=== PATIENT | male | born 1950 | race Caucasian/White ===

== ENCOUNTER 2024-10-27 10:39 | Outpatient (AMB) | payer OTHER, SELFPAY ==
--- NOTE | 2024-10-27 10:42 | A.OFFVIS_ITS ---
Vital Signs 10/27/24 10:46 Height 5 ft 8 in Weight 199 lb BMI 30.3 BP 114/78 Blood Pressure Location Rt brachial Position Sitting Intake Visit Reasons: ENP Parkinson Intake Note: Patient presents for Parkinson's Allergies No Known Allergies Allergy (Verified 10/27/24 10:47) Medication List - Last Reconciled 10/27/24 by Ashlee Ervin MD aspirin 81 mg PO DAILY atorvastatin 40 mg PO DAILY carbidopa-levodopa 25-100 mg 1 tab PO TID carvedilol 6.25 mg PO BID hydrochlorothiazide 25 mg PO DAILY lisinopril 30 mg PO DAILY sertraline 25 mg PO DAILY HPI Comments Details: 74y/o male comes for further evaluation and management of Parkinsons. He started developing rest tremors in his left hand about 2 years ago . Now he has tremors on his Right hands and legs as well. the tremors are mostly at rest. He was seen by Dr. Gonzalez and was started on carbidopa/levodopa 25/100 tid and noticed improvement. 3 weeks ago he developed RSV and was very sick . He noticed increase in tremors and generalized weakness. He was in [place] for 2 years - exposed to Agent [place] Memory- worse , word finding difficulty Sleep-vivid dreams sometimes , violent dreams sometimes, snoring , has sleep apnea and is on CPAP. Mood-anxiety - sertraline helps. alprazolam PRN helps He is very active and does a lot of wood working- very motivated Speech- no change hoarse from RSV , mild drooling Handwriting- always bad using utensils- good Dressing- normal showers- normal He has trouble turning in bed because of artificial shoulders He feels his gait is lower , mild off balance He had a fall month ago- while he got out of basement through trap door He has chronic double vision . Since his RSV he has dizziness and vertigo. He has stress incontinence Bowle movements - OK since his diet was changed [facility] Medical History Parkinson's disease without dyskinesia Sleep apnea PTSD (post-traumatic stress disorder) Panic disorder Hyperlipidemia HTN (hypertension) Cervicalgia Carpal tunnel syndrome Carcinoma larynx Carcinoma of prostate Surgical History H/O shoulder surgery H/O knee surgery Hx of cholecystectomy Social History Alcohol intake: never Patient Tobacco Use Status: Never used Tobacco Physical Exam Vital Signs: Last Vital Signs BP 114/78 10/27/24 10:46 BMI result Body Mass Index 30.3 Const General: cooperative, healthy appearing, comfortable and no acute distress Nutritional Appearance: average body habitus Orientation/consciousness: patient oriented x3 Eyes Pupils: Equal, round and reactive pupils present Neuro Other: Normal facial expression and blink No tremors mild cog wheel rigidity on the left UE FFM and foot taps mildly decreased- Gait- mild stoop, mild decreased arm swing good stride General: patient oriented x3, moves all extremities and no focal motor deficits Cranial nerves: Yes Facial sensation intact/muscles of mastication intact, Yes Equal, round and reactive pupils present, Yes Bilaterally intact EOM present, Yes Nystagmus not present, Yes Normal facial strength present, Yes Midline tongue present, Yes Symmetric palate elevation present and Yes Ability to bilaterally elevate shoulders present Cognition (Neuro): normal cognition Motor exam (neuro): 5/5 motor strength present throughout Deep tendon reflexes (DTR's): Right triceps reflex intensity grade: 1+, Left triceps reflex intensity grade: 1+, Rt Biceps (C5, C6): 1+, Left biceps reflex intensity grade: 1+, Right brachioradialis reflex intensity grade: 1+, Left brachioradialis reflex intensity grade: 1+, Right patellar reflex intensity grade: 1+ and Left patellar reflex intensity grade: 1+ Coordination: [id number] test normal Assessment & Plan Assessment & Plan (1) Parkinson's disease without dyskinesia: Code(s): G20.A1 - Parkinson's disease without dyskinesia, without mention of fluctuations Category: Medical Qualifiers: Fluctuating manifestations: without fluctuating manifestations Qualified Code(s): G20.A1 - Parkinson's disease without dyskinesia, without mention of fluctuations Plan [facility] Continue carbidopa/levodopa 25/100 tid Continue exercise Discussed fall prevention F/u in 6 mths Coding Level of Care Code New Pt Level 4 (61161) Complex EM visit Add On G2211 Diagnoses Parkinson's disease without dyskinesia or fluctuating manifestations G20.A1 Fluctuating manifestations: without fluctuating manifestations
[2024-10-27 10:46] VITALS: BP 114/78; BMI 30.3
--- OUTSIDE RECORDS SUMMARY | 2024-10-27 11:48 | XMS_ITS | Data Portability ---
Author Organization [place] [facility] - OP Address [address] [place] [address] Care Team Providers Care Lead Fabricator Name Role Phone LO PANG Primary Care Provider [facility] OTHER [phone] Assessment No assessment recorded. Plan of Treatment Reminders Order Date Submit Date Provider Last Modified By Organization Details Last Modified Time Details Appointments None recorded. Lab BMP, blood - in one month 2014 015 [email or web address] Not available 5 10:19:38 Referral None recorded. Procedures None recorded. Surgeries None recorded. Imaging None recorded. Medication Orders Nitrostat 0.4 mg sublingual tablet 2014 015 [facility]FACE [id number], [address] [place], [address], 5 17:24:43 ramipril 1.25 mg capsule 2014 015 [id number], [address] [place], [address], 5 08:52:52 Nitrostat 0.4 mg sublingual tablet 2014 015 [facility]FACE [id number], [address] [place], [address], 5 08:52:50 Patient TargetsNo targets recorded. Patient InstructionsNo instructions recorded. Reason for Referral None Reported. Results Created Date Observation Date Name Description Value Unit Range Abnormal Flag Note LastModifiedBy Organization Detail LastModifiedTime Result Notes None recorded. 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 He was taken to the [facility] where his coronary anatomy showed severe triple vessel coronary artery disease with an occlusion of the RCA. He had minimal pericardial effusion. He was taken to the [facility] for complete reconstruction of his LAD, which was performed with 3 drug-eluting stents 2.25 x 28, 2.25 x 20, and 3.0 x 16 mm Promus Premiere. He had a wide fracture on the diagonal branch of the LAD with no compromise of the flow. He had 80% disease of the marginal branch of the left circumflex with an EF of 45% to 50% and small pericardial effusion. The patient was discharged home on Prasugrel and aspirin. His postoperative course was uneventful. The wire was left in place and was not retrievable with the snare. Repeat echocardiography demonstrated ejection fraction of 55%. Problem Notes None recorded. Medical Equipment None Reported. Allergies No known drug allergies Medications Name Sig Start Date Stop Date Status Note LastModified by Organization Details LastModified Time atorvasta tin 80 mg tablet TAKE 1 TABLET EVERY DAY 2014 active due for yearly blood work : called to pharmacy DS Not Available Not Available Not Available radha brand 6.25 mg tablet TAKE 1 TABLET TWICE A DAY DIRECTED 2014 active Not Available Not Available Not Avai lable moxifloxa tato 400 mg tablet 08/30 completed Not Available Not Available Not Available Nitrostat 0.4 mg sublingua l tablet Place 1 tablet as needed by sublingu al route as directed . 2014 active Not Available Not Available Not Avai lable hydrocodo ne-homatr opine 5 mg-1.5 mg tablet 08/30 completed Not Available Not Available Not Available amlodipin e 10 mg tablet Take by oral route for 90 days. 08/30 completed Not Available Not Available Not Available ramipril 1.25 mg capsule Take 1 capsule every day by oral route as directed . 2014 active Not Available Not Available Not Avai lable sertralin e 50mg daily active Not Available Not Available No t Available Vitamin C 500mg daily active Not Available Not Available No t Available Aspir-81 once daily active Not Available Not Available No t Available Effient 10 mg tablet Take 1 tablet every day by oral route for 30 days. active Not Available Not Available No t Available Vitals Date Recorded Body height Body mass index (BMI) Body weight Heart rate Systolic blood pressure Diastolic blood pressure Provider Name and Address Organization Details Last Updated DateTime 5 171.45 cm 31.1 kg/m2 85199.9 99191 g 60 /min 133 mm[Hg] 89 mm[Hg] Jennifer Ayala [place] - [facility] 5 16:22:55 Date Recorded Body weight Body height Body mass index (BMI) Heart rate Systolic blood pressure Diastolic blood pressure Provider Name and Address Organization Details Last Updated DateTime 5 07507.1 79282 g 172.72 cm 32.2 kg/m2 64 /min 156 mm[Hg] 97 mm[Hg] Leatha Stephen [place] [facility] 5 16:36:55 Date Recorded Body weight Heart rate Body mass index (BMI) Body height Systolic blood pressure Diastolic blood pressure Provider Name and Address Organization Details Last Updated DateTime 4 57609.7 81572 g 58 /min 31.1 kg/m2 170.18 cm 118 mm[Hg] 78 mm[Hg] Yazan Pineda [place] [facility] 4 16:47:53 Social History Question Answer Notes LastModified by Organizat ion Details LastModified Time Tobacco Smoking Status Former Smoker [place]idi[place] [facility] 09/07/2014 16:47:52 How Many Years Have You Smoked Tobacco? 25 [email or web address] Information not available 09/06/2015 Sex: Unknown Functional Status None recorded. Mental Status None recorded. Family History Nothing Reported Notes:No premature heart dis ease in family. Medical History No medical history recorded. Immunizations Vaccine Type Date Status Note Provider Nam e and Address Organization Details Recorded Time pneumococcal, unspecified formulation 08/30/2014 completed Jennifer Ayala null, [place] [facility]2015 16:22:55 influenza, unspecified formulation 06/30/2015 completed Leatha Stephen dejuan, [place] [facility]2015 16:25:13 Past Encounters Encounter ID Performer Location Encounter Start Date Encounter Closed Date Diagnosis/Indication Diagnosis SNOMED-CT Code Diagnosis ICD10 Code Diagnosis Note [id number] Rolando Garcia MD [facility] [address] [address] 09/07/2014 16:32:15 09/07/2014 17:08:22 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 He had some GI bleed. I advised the patient to check with his gastroente rologist. Bleeding has stopped. At this point will continue with the aspirin and Effient. He should remain on antiplatel et therapy for a minimum of 1 year. Benign hypertension 22579099 He has dizziness and possibly low blood pressure will discontinu e his MICHAEL inhibitor. 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 I advised the patient to continue aspirin and discontinu e his Effient in April 2015 Benign hypertension 11817684 Blood pressure is well-contr olled, dizziness, improved. Hyperlipidemia 90006084 Target LDL less than [address] percutaneous transluminal coronary angioplasty 611407634 Aspirin lifelong. Effient for a minimum of 1 year post PCI. 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 I advised the patient to continue aspirin. Benign hypertension 1072 5009 I10 Blood pressure is running a bit on the high side. We will resume the patient's ramipril. Monitor his electrolyt es. Hyperlipidemia 94346869 E78.5 Target LDL less than [address] percutaneous transluminal coronary angioplasty 706272223 Z98.61 Aspirin lifelong. Health Concerns Section Related Observation LastModified by Organization Detai ls LastModified Time None Recorded Concern Status LastModified by Organization Details LastModified Time None Recorded Advance Directives Directive None Recorded Payers Encounter Date Sequence Insurance Name Policy Number Policy Adnerson Covered Member ID Anderson Member ID Guarantor Name 09/06/2015 1 [facility] (POS) [id number] Pankaj Her [id number] Pankaj Her Notes Date Note Type Note Provider Name and Address Organization Details Recorded Time 09/07/2014 text/html the patient from a cardiovascular point of view is quite active denies any chest pain shortness of breath PND orthopnea or syncope. He completed his cardiac rehabilitation program. He exercises on a regular basis on a treadmill at home up to 45 minutes. In 2 occasions the patient had a bleeding per rectum but this spontaneously stopped. He had no further bleeding issues. He continued his aspirin and Effient. Occasionally the patient reported he get dizzy and lightheaded when he stands up. And this is happening more so in the morning. The patient lipid has been monitored he is on large dose statin therapy with no side effect. His echocardiography demonstrated an ejection fraction of 50-55% with inferior wall hypokinesis with severe left atrial enlargementand valvular abnormalities. Rolando Garcia MD [address] [place] [address], [address], [place] [facility] 09/07/2014 20:01:46 03/07/2015 text/html the patient from a cardiovascular point of view is quite active denies any chest pain shortness of breath PND orthopnea or syncope. He exercises on a regular basis on a treadmill for three miles at home up to 45 minutes. He continued his aspirin and Effient. He has no further bleeding. He bruises easily. He no longer complains of any dizziness or lightheadedness. The patient lipid has been monitored he is on large dose statin therapy with no side effect. Rolando Garcia MD [address] [place], [address], [place] [facility]/07[facility]2015 17:24:39 09/06/2015 text/html The patient from a cardiovascular point of view is doing well physically active symptoms of angina or heart failure. He is on aspirin and beta rossy. He stopped his MICHAEL inhibitor. His blood pressure is now running high site. The patient is on atorvastatin for cholesterol well tolerated. Recent studies reviewed his CBC is unremarkable. Creatinine is 0.9 with BUN of 24. His potassium is 4.6. Liver function tests were normal. His HDL is 36 LDL of 63 triglycerides 105. Thyroid function test is normal. Rolando Garcia MD [address] [place], [address], [place] [facility] 09/07/2015 08:53:11
--- OUTSIDE RECORDS SUMMARY | 2024-10-27 11:48 | XMS_ITS | Clinical Summary ---
Author Organization Formerly [facility] Address [address] [place] [address] Care Team Providers Care Newspaper Copy Editor Name Role Phone Unavailable Primary Care Provider Unavailabl e Social History Tobacco Use Types Packs/Day Years Used Date Smoking Tobacco: Never Assessed Sex and Gender Information Value Date Recorded Sex Assigned at Not on file Gender Identity Not on file Sexual Orientation Not on file Plan of Treatment Health Maintenance Due Date Last Done Comments Hepatitis C Virus Screening 1950 DTaP/Tdap/Td Vaccines (1 - Tdap) 1968 Pneumococcal Vaccines 50+ (1 of 1 - PCV) 1999 Zoster (Shingles) Vaccine (1 of 2) 1999 COVID-19 Vaccine ( - 2023-2 5 season) 2024 RSV Vaccine 60 years and old er and Patients (1 - 1-dose 75+ series) 2024 Hepatitis B Vaccines Aged Out No long er eligible based on patient's age to complete this topic
== END 2024-10-27 11:19 | disposition home or self-care (01) ==
PROVIDERS: Visit Provider Psychiatry & Neurology Neurology
DX: G20.A1 Parkinson's disease without dyskinesia, without mention of fluctuations (principal)
CPT/HCPCS: 99204; G2211

== ENCOUNTER → 2024-10-27 10:39 | Outpatient (BNVA) | payer OTHER, SELFPAY | PROVIDERS: Visit Provider Psychiatry & Neurology Neurology | DX: G20.A1 Parkinson's disease without dyskinesia, without mention of fluctuations (principal) | CPT/HCPCS: 99202 ==

== ENCOUNTER 2025-06-07 09:51 | Outpatient (AMB) | payer OTHER, SELFPAY ==
--- NOTE | 2025-06-07 09:52 | MHC.OFFVIS ---
Vital Signs 06/07/25 09:53 Height 5 ft 8 in Weight 211 lb 4 oz BMI 32.1 BP 98/60 Pulse 72 Pulse Source Pulse Oximeter Pulse Oximetry (%) 94 Oxygen Delivery Method Room Air Intake Visit Reasons: f/u appt Intake Note: Follow up Parkinson's disease without dyskinesia Law Office Assistant Required: No Accompanied by: Spouse Allergies No Known Allergies Allergy (Verified 06/07/25 09:57) HPI Comments Details: 74y/o male comes for follow up of Parkinsons. No new symptoms. He is independent in all ADLs. History of initial visit 09/2024-He started developing rest tremors in his left hand about 2 years ago . Now he has tremors on his Right hands and legs as well. the tremors are mostly at rest. He was seen by Dr. Gonzalez and was started on carbidopa/levodopa 25/100 tid and noticed improvement. 3 weeks ago he developed RSV and was very sick . He noticed increase in tremors and generalized weakness. He was in [place] for 2 years - exposed to Agent [place] Memory- worse , word finding difficulty Sleep-vivid dreams sometimes , violent dreams sometimes, snoring , has sleep apnea and is on CPAP. Mood-anxiety - sertraline helps. alprazolam PRN helps He is very active and does a lot of wood working- very motivated Speech- no change hoarse from RSV , mild drooling Handwriting- always bad using utensils- good Dressing- normal showers- normal He has trouble turning in bed because of artificial shoulders He feels his gait is lower , mild off balance He had a fall month ago- while he got out of basement through trap door He has chronic double vision . Since his RSV he has dizziness and vertigo. He has stress incontinence Bowle movements - OK since his diet was changed [facility] Medical History Parkinson's disease without dyskinesia Sleep apnea PTSD (post-traumatic stress disorder) Panic disorder Hyperlipidemia HTN (hypertension) Cervicalgia Carpal tunnel syndrome Carcinoma larynx Carcinoma of prostate Surgical History H/O shoulder surgery H/O knee surgery Hx of cholecystectomy Social History Alcohol intake: never Patient Tobacco Use Status: Never used Tobacco Physical Exam Vital Signs: Last Vital Signs Pulse 72 06/07/25 09:53 BP 98/60 06/07/25 09:53 Pulse Ox 94 06/07/25 09:53 Oxygen Delivery Method Room Air 06/07/25 09:53 BMI result Body Mass Index 32.1 Const General: cooperative, healthy appearing, comfortable and no acute distress Nutritional Appearance: average body habitus Orientation/consciousness: patient oriented x3 Eyes Pupils: Equal, round and reactive pupils present Neuro Other: Normal facial expression and blink No tremors mild cog wheel rigidity on the left UE FFM and foot taps mildly decreased- Gait- mild stoop, mild decreased arm swing good stride General: patient oriented x3, moves all extremities and no focal motor deficits Cranial nerves: Yes Facial sensation intact/muscles of mastication intact, Yes Equal, round and reactive pupils present, Yes Bilaterally intact EOM present, Yes Nystagmus not present, Yes Normal facial strength present, Yes Midline tongue present, Yes Symmetric palate elevation present and Yes Ability to bilaterally elevate shoulders present Cognition (Neuro): normal cognition Motor exam (neuro): 5/5 motor strength present throughout Coordination: [id number] test normal Assessment & Plan Assessment & Plan (1) Parkinson's disease without dyskinesia: Code(s): G20.A1 - Parkinson's disease without dyskinesia, without mention of fluctuations Category: Medical Qualifiers: Fluctuating manifestations: without fluctuating manifestations Qualified Code(s): G20.A1 - Parkinson's disease without dyskinesia, without mention of fluctuations Plan Continue carbidopa/levodopa 25/100 tid Continue exercise Discussed fall prevention F/u in 6 mths Coding Level of Care Code Est Pt Level 4 (20823) Complex EM visit Add On G2211 Diagnoses Parkinson's disease without dyskinesia or fluctuating manifestations G20.A1 Fluctuating manifestations: without fluctuating manifestations
[2025-06-07 09:53] VITALS: BP 98/60; PULSE 72; O2SAT 94; BMI 32.1
--- OUTSIDE RECORDS SUMMARY | 2025-06-07 11:26 | XMS_ITS | Clinical Summary ---
Author Organization [facility] Address [address] [place] [id number] Phone Care Team Providers Care Honing Machine Operator Semiautomatic Name Role Phone Valentino Ortiz NP Primary Care Provide r Allergies No known active allergies Medications atorvastatin (LIPITOR) 80 MG tablet nightly at bedtime. 2 Active acetaminophen (TYLENOL) 500 MG tablet Take 1,000 mg by mouth. TAKE TWO TABLETS BY MOUTH THREE TIMES DAILY NEEDED FOR PAIN 2 Active carvedilol (COREG) 6.25 MG tablet carvedilol 6.25 mg tablet TAKE 1 TABLET TWICE A DAY DIRECTED 2 Active cyclobenzaprin e (FLEXERIL) 5 MG tablet Take 5 mg by mouth. TAKE ONE TABLET BY MOUTH AT BEDTIME NEEDED FOR MUSCLE SPASM 1 Active diclofenac sodium (VOLTAREN) 1 % Gel Apply topically. APPLY 2 GRAMS TOPICALLY FOUR TIMES A DAY FOR OSTEOARTHRITIS - USE DOSING CARD PROVIDED IN BOX 2 Active hydroCHLOROthi azide (HYDRODIURIL) 25 MG tablet Take 12.5 mg by mouth. TAKE ONE-HALF TABLET BY MOUTH ONCE DAILY TO PREVENT FLUID/CONTROL BLOOD PRESSURE 2 Active ibuprofen (ADVIL,MOTRIN) 800 MG tablet Take 800 mg by mouth. TAKE ONE TABLET BY MOUTH THREE TIMES DAILY NEEDED TAKE WITH FOOD; FOR PAIN/INFLAMMATION/ SWELLING 2 Active ketoconazole 2 % cream Apply topically. APPLY A THIN LAYER TOPICALLY TWICE DAILY APPLY TO RASH UNTIL CLEAR, AND NEEDED FOR FLARE UPS 1 Active lisinopril (PRINIVIL,ZEST RIL) 30 MG tablet Take 30 mg by mouth nightly at bedtime. TAKE ONE TABLET BY MOUTH ONCE DAILY TO CONTROL BLOOD PRESSURE 2 Active nitroglycerin (NITROSTAT) 0.4 MG SL tablet Nitrostat 0.[address] 1 tablet as needed by sublingual route as directed. Active ramipriL (ALTACE) 1.25 MG capsule daily. Active sertraline (ZOLOFT) 100 MG tablet Take 100 mg by mouth nightly at bedtime. 2 Active sertraline HCl (ZOLOFT ORAL) sertraline 50mg daily Active traMADoL (ULTRAM) 50 mg tablet Take 50 mg by mouth. TAKE ONE TABLET BY MOUTH THREE TIMES DAILY NEEDED FOR PAIN 2 Active vitamin E 400 UNIT capsule Take 1 capsule by mouth daily. 1 Active aspirin 81 MG EC tablet Aspir-81 once daily Active ascorbic acid, vitamin C, (VITAMIN C) 100 MG tablet Vitamin C 500mg daily Active ALPRAZolam (XANAX) 1 MG tablet Take 1 tablet by mouth daily as needed. 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 Carcinoma of prostate 04/04/2022 Carcinoma of larynx 04/04/2022 Overview (04/04/2022): Nov 28, 2018 Entered By: PAOLA KUMAR Comment: 2005 treated with radiation Contact dermatitis and other eczema 04/04/2022 Diplopia 04/04/2022 Arteriosclerosis of coronary artery 04/04/2022 Overview (04/04/2022): Nov 28, 2018 Entered By: PAOLA KUMAR Comment: 2014- 4 stents History of heart artery stent 04/04/2022 Overview (04/04/2022): X5 2014 no symptoms Sleep apnea 04/04/2022 Social History Tobacco Use Types Packs/Day Years Used Date Smoking Tobacco: Former Cigarettes Q uit: 1989 Smokeless Tobacco: Never Alcohol Use Standard Drinks/Week Comments Not Currently 0 (1 standard drink = 0.6 oz pur e alcohol) Education Answer Date Recorded Are you interested in more education? Not on fausto e 01/25/2023 Are you concerned about learning? Not on file 01/25/2023 No 01/25/2023 No 01/25/2023 Digital Access Answer Date Recorded No 02/23/2023 No 02/23/2023 No 02/23/2023 Reliable internet access at home? Not on file 02/23/2023 Device with a working camera? Not on file Sex and Gender Information Value Date Recorded Sex Assigned at Not on file Legal Sex Male 10:50 AM EDT Gender Identity Not on file Sexual Orientation Not on file Last Filed Vital Signs Vital Sign Reading Time Taken Comments Blood Pressure 114/69 04/04/2022 11:30 AM EDT Pulse 74 04/04/2022 11:30 AM EDT Temperature 36.7 C (98.1 F) 04/04/2022 9:34 AM EDT Respiratory Rate 16 04/04/2022 11:30 AM EDT Oxygen Saturation 97% 04/04/2022 11:30 AM EDT Inhaled Oxygen Concentration - - Weight 95.3 kg (210 lb) 04/04/2022 6:48 AM EDT Height 172.7 cm (5' 8 ) 04/04/2022 6:48 AM EDT Body Mass Index 31.93 04/04/2022 6:48 AM EDT Plan of Treatment Health Maintenance Due Date Last Done Comments CREATININE LEVEL 1950 POTASSIUM LEVEL 1949 DEPRESSION SCREENING 1961 SMOKING Hx and SMOKELESS TOBACCO SCREENING 1962 HEPATITIS C SCREENING 1967 COLOGUARD 1994 COLONOSCOPY 1994 COLORECTAL CANCER SCREENING 1994 FIT TEST 1994 FOBT 1994 SIGMOIDOSCOPY 1994 VIRTUAL COLONOSCOPY 1994 RSV VACCINE (1 - 1-dose 75+ series) 2024 INFLUENZA VACCINE (#1) 2025 , 08/08/2020, 07/31/2020, Additional history exists COVID-19 VACCINE (2024- season) 2025 02/07/2022, 08/15/2021, 11/14/2020, Additional history exists Adult Td,Tdap Booster 03/15/2026 03/15/2016 , 02/29/2016, 02/29/2016, Additional history exists PNEUMOCOCCAL VACCINES (50+ years) Completed 04/07/2019, 05/24/2017, 03/15/2016, Additional history exists ZOSTER VACCINES Completed 02/05/2020, 10/02, 11/28/2018, Additional history exists HEPATITIS A VACCINES Aged Out No long er eligible based on patient's age to complete this topic HIB VACCINES Aged Out No longer eligi ble based on patient's age to complete this topic MENINGOCOCCAL VACCINES (ACWY) Aged Out No longer eligible based on patient's age to complete this topic MENINGOCOCCAL VACCINES (B) Aged Out N o longer eligible based on patient's age to complete this topic Medical Devices Implanted Type Area Clinical Account Specialist Device Identifier Shelf Expiration Date Model / Serial / Lot Coronary Stent Insurance [facility] [place] [address] Care Teams Honing Machine Operator Semiautomatic Relationship Specialty Start Date End Date Valentino Ortiz NP [address] [place] [address] PCP - General Family Medicine 03/14/20 Additional Source Comments The information contained in this document represents components of the legal health record. It is not the complete legal health record.[facility]
--- OUTSIDE RECORDS SUMMARY | 2025-06-07 11:26 | XMS_ITS | Encounter Summary ---
Author Organization [facility] Address [address] [place] [address] Phone Care Team Providers Care Industrial Gas Fitter Name Role Phone Jaime Childress MD Primary Care Provider [phone] Valentino Ortiz NP Primary Care Provide r Reason for Referral * MRI/CAT Scan - Closed Specialty Diagnoses / Procedures Referred By Contac t Referred To Contact Radiology Diagnoses Atherosclerosis of [place] coronary artery without angina pectoris, unspecified whether [place] or transplanted heart Procedures NC Myocardial Perfusion Exercise Multiple Jaime Childress MD [address] [place] [address] Phone: tel: Referral ID Status Reason Start Date Expiration Date Visits Re quested Visits Authorized [id number] Closed 12/29/2019 06/28/2020 1 1 Encounter Details Date Type Department Care Team (Latest Contact Info) Description 03/07/2020 Transcribe Orders Virtual Department [address] [place] [address] Jaime Childress MD [address] [place] [address] Atherosclerosis of [place] coronary artery without angina pectoris, unspecified whether [place] or transplanted heart (Primary Dx) Social History Tobacco Use Types Packs/Day Years Used Date Smoking Tobacco: Never Assessed Sex and Gender Information Value Date Recorded Sex Assigned at Not on file Legal Sex Male 10:50 AM EDT Gender Identity Not on file Sexual Orientation Not on file documented as of this encounter Plan of Treatment Not on file documented as of this encounter Results * NC Myocardial Perfusion Exercise Multiple (03/14/2020 11:56 AM EDT) Anatomical Region Laterality Modality Heart, Vascular Nuclear Medicine 03/14/2020 12:0 5 PM EDT Impressions 03/14/2020 12:54 PM EDT Slightly submaximal exercise without clear findings for ischemia. Mildly elevated TID ratio without other findings for balanced ischemia. 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 Ejection fraction relatively preserved preserved, calculated at 52%. POS -[id number] Narrative 03/14/2020 12:54 PM EDT HISTORY: Coronary artery disease related condition. TECHNIQUE: Tc-99m labeled Cardiolite is was administered for both stress and rest portions. Tagging dose at rest is 10.1 mCi and at stress 34 mCi. Gated wall motion study is performed at stress. Patient achieved a maximum heart rate of 126 bpm which is 84% of predicted maximum. FINDINGS: There is a prominent defect in the inferior wall and inferolateral wall at both stress and rest consistent with a prior infarction predominantly involving what is probably right coronary distribution. No defects at stress to clearly suggest ischemia. TID ratio is 1.3, which is elevated but without other clear findings for balanced ischemia. Gated wall motion study demonstrates no motion abnormality in the noninfarcted segments with preserved thickening. Ejection fraction appears fairly well preserved, calculated at 52%. Procedure Note Aftab Marquez MD - 03/14/2020 HISTORY: Coronary artery disease related condition. TECHNIQUE: Tc-99m labeled Cardiolite is was administered for both stressand rest portions. Tagging dose at rest is 10.1 mCi and at stress 34 mCi.Gated wall motion study is performed at stress. Patient achieved a maximumheart rate of 126 bpm which is 84% of predicted maximum. FINDINGS: There is a prominent defect in the inferior wall and inferolateral wallat both stress and rest consistent with a prior infarction predominantlyinvolving what is probably right coronary distribution. No defects atstress to clearly suggest ischemia. TID ratio is 1.3, which is elevatedbut without other clear findings for balanced ischemia. Gated wall motion study demonstrates no motion abnormality in thenoninfarcted segments with preserved thickening. Ejection fraction appearsfairly well preserved, calculated at 52%. IMPRESSION: Slightly submaximal exercise without clear findings for ischemia. Mildlyelevated TID ratio without other findings for balanced ischemia. Evidenceof old inferior wall infarction. Ejection fraction relatively preservedpreserved, calculated at 52%. POS -[id number] Jaime Childress MD CV NM CARDIAC Final Resu lt documented in this encounter Visit Diagnoses Diagnosis Atherosclerosis of [place] coronary artery without angina pectoris, unspecified whether [place] or transplanted heart- Primary Atherosclerosis of [place] coronary artery without angina pectoris, unspecified whether [place] or transplanted heart documented in this encounter Care Teams Industrial Gas Fitter Relationship Specialty Start Date End Date Jaime Childress MD [address] [place] [address] PCP - General Cardiology 03/07/20 03/13/20 Valentino Ortiz NP [address] [place] [address] PCP - General Family Medicine 03/14/20 documented as of this encounter Additional Source Comments The information contained in this document represents components of the legal health record. It is not the complete legal health record.[facility]
--- OUTSIDE RECORDS SUMMARY | 2025-06-07 11:27 | XMS_ITS ---
Author Name [facility] Organization Unknown Results Test Name/Text Value Interpretation Date Range Source Calcium SerPl-mCnc 8.7 mg/dL 04/02/2025 8.6 - 10.2 [facility] Bilirub SerPl-mCnc 1.5 mg/dL Above high normal 04/02/2025 0. 2 - 1.2 [facility] Prot SerPl-mCnc 7.1 g/dL 04/02/2025 6.4 - 8.3 [facility] BUN/Creat SerPl 22.9 04/02/2025 10 - 23 [facility] Sodium SerPl-sCnc 136.0 mmol/L 04/02/2025 135 - 14 5 [facility] Albumin SerPl-mCnc 3.7 g/dL 04/02/2025 3.5 - 5.2 [facility] CO2 SerPl-sCnc 22.0 mmol/L 04/02/2025 22 - 29 [facility] BUN SerPl-mCnc 16.0 mg/dL 04/02/2025 8 - 23 [facility] Albumin/Glob SerPl 1.1 04/02/2025 1.1 - 1.8 [facility] Globulin Ser Calc-mCnc 3.4 g/dL 04/02/2025 2.3 - 3.5 [facility] AST SerPl-cCnc 27.0 U/L 04/02/2025 8 - 48 [facility] eGFRcr SerPlBld CKD-EPI 2020 >60.0 mL/min/1.73m2 04/02/2025 - [facility] Anion Gap SerPl Calc-sCnc 11.0 mmol/L 04/02/2025 6 - 16 [facility] Glucose SerPl-mCnc 107.0 mg/dL Above high normal 04/02/2025 65 - 99 [facility] Potassium SerPl-sCnc 3.8 mmol/L 04/02/2025 3.4 - 5 .1 [facility] Chloride SerPl-sCnc 103.0 mmol/L 04/02/2025 98 - 1 07 [facility] Creat SerPl-mCnc 0.7 mg/dL 04/02/2025 0.7 - 1.3 [facility] ALT SerPl-cCnc <5.0 U/L Below low normal 04/02/2025 7 - 55 [facility] ALP SerPl-cCnc 98.0 U/L 04/02/2025 40 - 115 [facility] Lymphocytes # Bld Auto 0.93 K/uL Below low normal 04/02/2025 1 - 4.8 [facility] nRBC Bld-Rto 0.0 per 100 WBCs 04/02/2025 - [facility] Platelet # Bld Auto 159.0 K/uL 04/02/2025 140 - 45 0 [facility] RBC # Bld Auto 5.19 M/uL 04/02/2025 4.3 - 5.4 [facility] Imm Granulocytes NFr Bld Auto 0.2 % 04/02/2025 0 - 1 [facility] Basophils NFr Bld Auto 0.8 % 04/02/2025 0 - 1 [facility] RBC Auto 88.2 fL 04/02/2025 82 - 96 [facility] Imm Granulocytes # Bld Auto 0.01 K/uL 04/02/2025 0 - 0.1 [facility] Monocytes NFr Bld Auto 18.5 % Above high normal 04/02/2025 3 - 11 [facility] PMV Bld Auto 9.1 fL 04/02/2025 6.5 - 11.7 [facility] Lymphocytes NFr Bld Auto 18.1 % Below low normal 04/02/2025 19 - 45 [facility] Monocytes # Bld Auto 0.95 K/uL Above high normal 04/02/2025 0 - 0.8 [facility] Eosinophil NFr Bld Auto 1.8 % 04/02/2025 0 - 4 [facility] Neutrophils NFr Bld Auto 60.6 % 04/02/2025 39 - 73 [facility] MCHC RBC Auto-EntMCnc 33.6 g/dL 04/02/2025 31 - 36 [facility] MCH RBC Qn Auto 29.7 pg 04/02/2025 26 - 33 [facility] Neutrophils # Bld Auto 3.11 K/uL 04/02/2025 1.5 - 7 [facility] Basophils # Bld Auto 0.04 K/uL 04/02/2025 0 - 0.2 [facility] nRBC # Bld 0.0 K/uL 04/02/2025 0 - 0.2 [facility] Hct VFr Bld Auto 45.8 % 04/02/2025 42 - 54 [facility] WBC # Bld Auto 5.13 K/uL 04/02/2025 4 - 11 [facility] Hgb Bld-mCnc 15.4 g/dL 04/02/2025 14 - 17.7 [facility] Eosinophil # Bld Auto 0.09 K/uL 04/02/2025 0 - 0.5 [facility] RDW RBC Auto 12.5 % 04/02/2025 11.5 - 14.5 [facility] Deprecated RDW RBC Auto 41.2 fL 04/02/2025 35 - 46 [facility] B pert.PT Prmt Nph Ql NEMO+non-probe Not Detected 04/02/2025 [facility] HCoV HKU1 RNA Nph Ql NEMO+non-probe Not Detected 04/02/2025 [facility] HPIV3 RNA Nph Ql NEMO+non-probe Detected Abnormal 04/02/2025 [facility] RSV RNA Nph Ql NEMO+non-probe Not Detected 04/02/2025 [facility] SARS-CoV-2 RNA Nph Ql NEMO+non-probe Not Detected 04/02/2025 [facility] RV+EV RNA Nph Ql NEMO+non-probe Not Detected 04/02/2025 [facility] HCoV 229E RNA Nph Ql NEMO+non-probe Not Detected 04/02/2025 [facility] FLUBV RNA Nph Ql NEMO+non-probe Not Detected 04/02/2025 [facility] hMPV RNA Nph Ql NEMO+non-probe Not Detected 04/02/2025 [facility] HPIV4 RNA Nph Ql NEMO+non-probe Not Detected 04/02/2025 [facility] HPIV1 RNA Nph Ql NEMO+non-probe Not Detected 04/02/2025 [facility] HPIV2 RNA Nph Ql NEMO+non-probe Not Detected 04/02/2025 [facility] C pneum DNA Nph Ql NEMO+non-probe Not Detected 04/02/2025 [facility] M pneumo DNA Nph Ql NEMO+non-probe Not Detected 04/02/2025 [facility] HAdV DNA Nph Ql NEMO+non-probe Not Detected 04/02/2025 [facility] FLUAV RNA Nph Ql NEMO+non-probe Not Detected 04/02/2025 [facility] HCoV NL63 RNA Nph Ql NEMO+non-probe Not Detected 04/02/2025 [facility] B parap [id number] DNA Nph Ql NEMO+non-probe Not Detected 04/02/2025 [facility] HCoV OC43 RNA Nph Ql NEMO+non-probe Not Detected 04/02/2025 [facility] Encounters Encounter Type Encounter Reason Primary Diagnosis Location Date Emergency Other viral infections of unspecified site Other viral infections of unspecified site [facility] 04/02/2025 Care Team Organization Name Specialty Phone Email Start Date End Da te [facility] 04/02
--- OUTSIDE RECORDS SUMMARY | 2025-06-07 11:27 | XMS_ITS | Encounter Summary ---
Author Organization [facility] Address [address] [facility] [address] [place] [id number] Phone Care Team Providers Care Rolfer Name Role Phone Valentino Ortiz NP Primary Care Provide r Encounter Details Date Type Department Care Team (Late st Contact Info) Description 04/04/2022 Procedure Pass [facility] DEPT [address] [place] [id number] Social History Tobacco Use Types Packs/Day Years Used Date Smoking Tobacco: Former Cigarettes Q uit: 1989 Smokeless Tobacco: Never Alcohol Use Standard Drinks/Week Comments Not Currently 0 (1 standard drink = 0.6 oz pur e alcohol) Sex and Gender Information Value Date Recorded Sex Assigned at Not on file Legal Sex Male 10:50 AM EDT Gender Identity Not on file Sexual Orientation Not on file documented as of this encounter Plan of Treatment Not on file documented as of this encounter Visit Diagnoses Not on filedocumented in this encounter Care Teams Rolfer Relationship Specialty Start Date End Date Valentino Ortiz NP [address] [place] [address] PCP - General Family Medicine 03/14/20 documented as of this encounter Additional Source Comments The information contained in this document represents components of the legal health record. It is not the complete legal health record.[facility]
--- OUTSIDE RECORDS SUMMARY | 2025-06-07 11:27 | XMS_ITS | Clinical Summary ---
Author Organization [facility] Address [address] [place] [address] Care Team Providers Care Shipping And Receiving Supervisor Name Role Phone Unavailable Primary Care Provider Unavailabl e Social History Tobacco Use Types Packs/Day Years Used Date Smoking Tobacco: Never Assessed Sex and Gender Information Value Date Recorded Sex Assigned at Not on file Legal Sex Male 11:36 AM EDT Gender Identity Not on file Sexual Orientation Not on file Plan of Treatment Health Maintenance Due Date Last Done Comments Advance Care Planning 1950 Hepatitis C Virus Screening 1950 DTaP/Tdap/Td Vaccines (1 - Tdap) 1968 Pneumococcal Vaccines 50+ (1 of 1 - PCV) 1999 Zoster (Shingles) Vaccine (1 of 2) 1999 RSV Vaccine 60 years and old er and Patients (1 - 1-dose 75+ series) 2024 COVID-19 Vaccine ( - 2023-2 5 season) 2025 Hepatitis B Vaccines Aged Out No long er eligible based on patient's age to complete this topic
--- OUTSIDE RECORDS SUMMARY | 2025-06-07 11:27 | XMS_ITS | Encounter Summary ---
Author Organization [facility] Address [address] [facility] [address] [place] [address] Phone Care Team Providers Care Planning Analyst Name Role Phone Valentino Ortiz NP Primary Care Provide r Encounter Details Date Type Department Care Team (Latest Contact Info) Description 03/14/2020 Ancillary Orders Non-Invasive Cardiology [address] [place] [address] Jaime Childress MD [address] [place] [address] Atherosclerosis of [place] coronary artery without angina pectoris, unspecified whether [place] or transplanted heart Social History Tobacco Use Types Packs/Day Years Used Date Smoking Tobacco: Never Assessed Sex and Gender Information Value Date Recorded Sex Assigned at Not on file Legal Sex Male 10:50 AM EDT Gender Identity Not on file Sexual Orientation Not on file documented as of this encounter Plan of Treatment Not on file documented as of this encounter Results * NC Stress Result for Nuclear Stress Test (03/14/2020 11:23 AM EDT) Max BP Systolic 168 mmHg [facility] Max BP Diastolic 80 mmHg [facility] Max HR 126 BPM [facility] Resting HR 61 BPM [facility] Resting BP Systolic 130 mmHg [facility] Resting BP Diastolic 74 mmHg [facility] Peak METS 4.1 METS [facility] Peak HR 122 BPM [facility] Anatomical Region Laterality Modality Heart Other 03/14/2020 10:3 5 AM EDT 03/14/2020 11:21 AM EDT Narrative 03/14/2020 12:03 PM EDT Response to Stress The patient exercised for minutes seconds, achieving 4.1 METS at peak exercise. Baseline blood pressure was 130/74 mmHg, and baseline heart rate was 61 bpm. The patient achieved a peak heart rate of 122 bpm, which is% of their maximum predicted heart rate. REPORT - Pt exercised for 10:50 min on a GARY protocol achieving 12.9 METS. Test terminated due to fatigue. Baseline resting HR was 60. Max heart rate achieved was 126 84% MPHR). 1. EKG - Baseline EKG showed normal sinus rhythm, inferior Q waves, lateral Q waves. No ischemic EKG changes with exercise. 2. SYMPTOMS - no chest pain 3. EXERCISE PHYSIOLOGY - normal BP response to exercise. Good functional capacity for age. 4. ARRHYTHMIAS - none Conclusion - normal stress test. Nuclear images pending and will be reported separately. Candida Garvin NP with Dr Irizarry . us Jaime Childress MD CV NM CARDIAC Final Resu lt documented in this encounter Visit Diagnoses Diagnosis Atherosclerosis of [place] coronary artery without angina pectoris, unspecified whether [place] or transplanted heart Atherosclerosis of [place] coronary artery without angina pectoris, unspecified whether [place] or transplanted heart documented in this encounter Care Teams Planning Analyst Relationship Specialty Start Date End Date Valentino Ortiz NP [facility] [place] [address] PCP - General Family Medicine 03/14/20 documented as of this encounter Additional Source Comments The information contained in this document represents components of the legal health record. It is not the complete legal health record.[facility]
== END 2025-06-07 10:15 | disposition home or self-care (01) ==
LOC: HO.HSMS 09:51
PROVIDERS: Visit Provider Psychiatry & Neurology Neurology
DX: G20.A1 Parkinson's disease without dyskinesia, without mention of fluctuations (principal)
CPT/HCPCS: 99214; G2211

== ENCOUNTER → 2025-06-07 09:51 | Outpatient (BNVA) | payer OTHER, SELFPAY | PROVIDERS: Visit Provider Psychiatry & Neurology Neurology | DX: G20.A1 Parkinson's disease without dyskinesia, without mention of fluctuations (principal) | CPT/HCPCS: 99212 ==